=== PATIENT | male | born 2000 | race Caucasian/White ===

== ENCOUNTER 2019-03-26 | Emergency (ER) | payer SELFPAY ==
[2019-03-26] MEDS ORDERED: LIDOCAINE HCL 1% MDV 200MG/20ML VIAL IM ONE (00:09)
[2019-03-26] MEDS ORDERED: SODIUM BICARBONATE 2.4 MEQ/5 ML VIAL INJ ONE (00:09)
[2019-03-26 00:28] VITALS: BP 144/87
[2019-03-26] MEDS ORDERED: CEPHALEXIN 250 MG CAPSULE PO ONE (01:04)
[2019-03-26] MEDS ORDERED: NEOMYCIN/BACITRACIN/POLYMYXINB OINT 15 GM TP ONE (01:04)
--- NOTE | 2019-03-26 01:11 | ED Physician Documentation ---
General Adult - HISTORIAN Historian: patient - HPI Stated Complaint: neck lac Chief Complaint: Laceration/Recheck/Suture (Neck Laceration) Additional Information: 19 year old male arrives with girlfriend; patient has a 20 cm laceration to the left side of the neck. Patient states around 9 a.m. this morning he was at the [employer] and he was do "ramps" and he lost control of his skateboard and the his neck caught the curb of the wall; he has been trying to take care of it at home; he is also intoxicated but cooperative. Onset: hours Timing: still present Severity: moderate Modifying Factors: "skateboarding" - ROS CONST: no problems EYES/ENT: none CVS/RESP: none GI/: none MS/SKIN/LYMPH: none NEURO/PSYCH: denies: headache, dizziness, tingling - PAST HX Past History: none Other History: none Surgeries/Procedures: none Immunizations: tetanus, UTD Allergies/Adverse Reactions: Allergies Allergy/AdvReac Type Severity Reaction Status Date / Time No Known Allergies Allergy Verified 03/26/19 00:20 Home Medications: Ambulatory Orders Medication Instructions Recorded Cephalexin [Keflex] 500 mg PO Q6H #28 capsule 03/26/19 - SOCIAL HX Smoking History: greater than 1 pack/day Alcohol Use: heavy Drug Use: marijuana - FAMILY HX Family History: No - VITAL SIGNS Vital Signs: Vital Signs Temp Pulse Resp BP Pulse Ox 97.9 F 84 18 144/87 99 03/26/19 01:43 03/26/19 01:43 03/26/19 01:43 03/26/19 01:43 03/26/19 00:09 - REVIEWED ASSESSMENTS Nursing Assessment Reviewed: Yes Vitals Reviewed: Yes Procedures Wound Location: neck Wound Length: 20 cm Wound's Depth, Shape: linear Wound Explored: clean Irrigated w/ Saline (ccs): 200 Betadine Prep?: Yes Anesthesia: 1% Lidocaine, Other (Neut) Volume of Anesthetic: 10 ml Wound Repaired With: sutures Suture Size/Type: 6:0 Number of Sutures: 22 Layer Closure?: No Sterile Dressing Applied?: Yes ED Results Lab/Radiology - Orders Orders: ED Orders Category Date Time Status Apply/change dressing NOW Care 03/26/19 01:04 Active Cleanse with NS and Betadine 1T Care 03/26/19 01:04 Active Cephalexin [Keflex] Med 03/26/19 01:04 Discontinued 1,000 mg PO NOW ONE Lidocaine 1% 20ml ([place]) [Xylocaine] Med 03/26/19 00:09 Discontinued 10 mg IM NOW ONE Neomycin/Bacitracin/Polymyxinb [Triple Antibiotic Med 03/26/19 01:04 Discontinued Ointment] 1 applic TP NOW ONE Sodium Bicarbonate [Neut] Med 03/26/19 00:09 Discontinued 2.4 meq INJ NOW ONE General Adult Physical Exam - PHYSICAL EXAM GENERAL APPEARANCE: no distress EENT: eye inspection normal, ENT inspection normal, pharynx normal, NADEEN NECK: other (large laceration) RESPIRATORY: breath sounds normal CVS: heart sounds normal SKIN: warm/dry, normal color, other (20 cm skin laceration to the left side of the neck ) EXTREMITIES: normal range of motion NEURO: oriented X3, CN's nml as tested, motor nml, sensation nml, mood/affect nml, cognition normal Discharge Clincal Impression: Laceration of neck, complicated Prescriptions: Cephalexin [Keflex] 500 mg PO Q6H #28 capsule Referrals: Primary Doctor,No [Primary Care Provider] - 2 Days Additional Instructions: Keep sutures clean and dry Apply antibiotic ointment and dressing daily Take antibiotic as directed (Cephalexin 500 mg by mouth 4 times a day for 7 days) Alternate Tylenol and Ibuprofen as needed for discomfort Follow up with PCP in 7-10 days to have sutures removed DO NOT REMOVE SUTURES YOURSELF Condition: Stable Disposition: 01 HOME, SELF-CARE Decision to Admit: NO Decision Time: 02:00
== END 2019-03-26 01:17 | disposition home or self-care (01) ==
LOC: ED
DX: S11.91XA Laceration without foreign body of unspecified part of neck, initial encounter (principal); X58.XXXA Exposure to other specified factors, initial encounter; Y93.51 Activity, roller skating (inline) and skateboarding; W22.01XA Walked into wall, initial encounter; Y93.89 Activity, other specified
CPT/HCPCS: 12005; 96372; 99283; 99284